=== PATIENT | female | born 1970 | race Hispanic/Latino ===

== ENCOUNTER 2023-09-14 02:27 | Emergency (ER) | payer SELFPAY ==
[2023-09-14 03:21] LABS: Bacteria/HPF None Seen HPF (None Seen); Bilirubin Negative (Negative); Blood, Urine 2+ (Negative); CAUTI Indications for Culture Pelvic or flank pain; Clarity Clear (Clear); Glucose, Urine (Dipstick) Normal (Negative); Ketone, Urine Negative (Negative); Leukocyte Negative Leu/uL (Negative); Nitrite Negative (Negative); Protein, Urine (Dipstick) Negative (Neg-Trace); RBC/HPF None Seen HPF (0-3); Specific Gravity, Urine 1.017 (1.002-1.036); Squamous Epithelial 0-3 HPF (0-3); Urobilinogen Normal mg/dL (Less than 2); WBC/HPF 0-3 HPF (0-3)
[2023-09-14 03:27] LABS: Urine Culture Reflex No No
[2023-09-14 03:38] LABS: #Basophils 0.1 thou/uL (0.0-0.2); #Eosinphils 0.2 thou/uL (0.0-0.7); #Monocytes 0.6 thou/uL (0.11-0.59); #Neutrophils 4.6 thou/uL (1.40-6.50); %Basophils 0.7 % (0.0-1.0); %Eosinophils 2.7 % (0.0-10.0); %Monocytes 8.7 % (0.0-10.0); %Neutrophils 64.6 % (42.0-75.0); Mean Corpuscular HGB CONC 30.3 g/dL (32.0-36.0); Mean Corpuscular Hemoglobin 23.5 pg (27.0-31.0); Mean Corpuscular Volume 77.6 fl (78.0-98.0); Mean Platelet Volume 9.7 fL (7.4-10.4); Platelet Count 304 10x3/uL (130-400); RBC Distribution Width 14.8 % (11.5-14.5); Red Blood Cell (RBC) Count 4.25 mill/uL (4.20-5.40)
[2023-09-14 03:56] LABS: ALT (SGPT) 13 U/L (8-55); AST (SGOT) 21 U/L (5-34); Albumin 4.3 g/dL (3.5-5.0); Alkaline Phosphatase 108 U/L (40-110); Anion Gap 11 mmol/L (10-20); BUN (Urea Nitrogen) 16 mg/dL (9.8-20.1); Bilirubin, Total 0.3 mg/dL (0.2-1.2); Calc. Creatinine Clearance 0 mL/min (70-130); Calcium 8.8 mg/dL (7.8-10.44); Carbon Dioxide 22 mmol/L (22-29); Chloride 109 mmol/L (98-107); Estimated GFR 81; Glucose 109 mg/dL (70-105); Lipase 51 U/L (8-78); Potassium 4.1 mmol/L (3.5-5.1); Protein, Total 7.3 g/dL (6.0-8.3); Sodium 138 mmol/L (136-145)
[2023-09-14] MEDS ORDERED: Ondansetron PF 4 MG/2 ML Vial ONE (06:58)
[2023-09-14] MEDS ORDERED: Morphine 4 MG/ML VIAL ONE (06:58)
[2023-09-14] MEDS ORDERED: Ketorolac Tromethamine 30 MG (1 mL) VIAL ONE (06:58)
== END 2023-09-14 08:35 | disposition home or self-care (01) ==
LOC: ERS 02:27 → EDBD 02:27 → ERS 08:35
DX: K80.20 Calculus of gallbladder without cholecystitis without obstruction (principal)
CPT/HCPCS: 36415; 74176; 76705; 80053; 81001; 83690; 85025; 96374; 96375; J1885; J2270; J2405

== ENCOUNTER 2023-09-15 14:28 | Inpatient (IN) | payer SELFPAY ==
[2023-09-15 14:51] LABS: #Basophils 0.1 thou/uL (0.0-0.2); #Eosinphils 0.2 thou/uL (0.0-0.7); #Monocytes 0.7 thou/uL (0.11-0.59); #Neutrophils 4.2 thou/uL (1.40-6.50); %Basophils 0.8 % (0.0-1.0); %Eosinophils 3.1 % (0.0-10.0); %Monocytes 9.3 % (0.0-10.0); %Neutrophils 59.4 % (42.0-75.0); Hematocrit 31.7 % (36.0-47.0); Hemoglobin 9.9 g/dL (12.0-16.0); Mean Corpuscular HGB CONC 31.2 g/dL (32.0-36.0); Mean Corpuscular Hemoglobin 24.3 pg (27.0-31.0); Mean Corpuscular Volume 77.7 fl (78.0-98.0); Mean Platelet Volume 9.3 fL (7.4-10.4); Platelet Count 292 10x3/uL (130-400); RBC Distribution Width 14.7 % (11.5-14.5); Red Blood Cell (RBC) Count 4.08 mill/uL (4.20-5.40); White Blood Cell (WBC) Count 7.1 10x3/uL (4.8-10.8)
[2023-09-15 15:00] LABS: BHCG - Serum Negative (NEGATIVE); Pregs Control Background? CLEAR/WHITE (CLR/WHITE); Pregs Control Bar Appear? YES (CONTROL BAR)
[2023-09-15 15:16] LABS: ALT (SGPT) 14 U/L (8-55); AST (SGOT) 20 U/L (5-34); Albumin 3.9 g/dL (3.5-5.0); Alkaline Phosphatase 105 U/L (40-110); Anion Gap 10 mmol/L (10-20); BUN (Urea Nitrogen) 14 mg/dL (9.8-20.1); Bilirubin, Total 0.3 mg/dL (0.2-1.2); Calc. Creatinine Clearance 0 mL/min (70-130); Calcium 8.5 mg/dL (7.8-10.44); Carbon Dioxide 23 mmol/L (22-29); Chloride 107 mmol/L (98-107); Estimated GFR 65; Globulin 3.2 g/dL (2.4-3.5); Glucose 113 mg/dL (70-105); Lipase 54 U/L (8-78); Potassium 3.5 mmol/L (3.5-5.1); Protein, Total 7.1 g/dL (6.0-8.3); Sodium 136 mmol/L (136-145)
[2023-09-15] MEDS ORDERED: Morphine 4 MG/ML VIAL ONE (15:46)
[2023-09-15] MEDS ORDERED: Ketorolac Tromethamine 30 MG (1 mL) VIAL ONE (15:47)
[2023-09-15] MEDS ORDERED: Ondansetron PF 4 MG/2 ML Vial ONE (15:47)
[2023-09-15 16:23] LABS: Troponin I Less than 0.010 ng/mL (< 0.028)
[2023-09-15] MEDS ORDERED: Morphine 4 MG/ML VIAL SLOW IVP PRN (17:56)
[2023-09-15] MEDS ORDERED: hydrALAZINE 20 MG/ML VIAL SLOW IVP PRN (17:56)
[2023-09-15] MEDS ORDERED: Ondansetron ODT 4 MG TAB PO PRN (17:56)
[2023-09-15] MEDS ORDERED: Morphine 2 MG/ML VIAL SLOW IVP PRN (17:56)
[2023-09-15] MEDS ORDERED: traMADol HCl 50 MG TAB PO PRN (17:56)
[2023-09-15] MEDS ORDERED: Ondansetron PF 4 MG/2 ML Vial IVP PRN (17:56)
[2023-09-15] MEDS ORDERED: Ketorolac Tromethamine 30 MG (1 mL) VIAL IVP SCH (18:45)
[2023-09-15] MEDS ORDERED: LevoFLOXacin D5W 500 mg (100 mL) BAG ONE (18:54)
[2023-09-15] MEDS ORDERED: LevoFLOXacin 500 mg/D5W 500 MG in Premix 1 BAG IVPB SCH (20:00)
[2023-09-15] MEDS ORDERED: Scopolamine 1 mg/72 hour Patch TD SCH (20:00)
[2023-09-15] MEDS: Acetaminophen 500 MG TAB PO SCH (20:43)
[2023-09-15] MEDS: Sodium Chloride 0.9% 1,000 ML IV SCH (20:48)
[2023-09-15] MEDS ORDERED: Enoxaparin 40 MG (0.4 mL) SYRINGE SC SCH (21:00)
[2023-09-16 02:03] VITALS: BMI 27.2
[2023-09-16] MEDS: Ketorolac Tromethamine 30 MG (1 mL) VIAL IVP SCH ×2 (03:17→10:01)
[2023-09-16] MEDS: Sodium Chloride 0.9% 1,000 ML IV SCH ×2 (08:36→10:01)
[2023-09-16] MEDS ORDERED: Pantoprazole 40 MG VIAL IVP SCH (09:00)
[2023-09-16] MEDS ORDERED: Ketorolac Tromethamine 30 MG (1 mL) VIAL ONE (09:39)
[2023-09-16] MEDS: Acetaminophen 500 MG TAB PO SCH ×3 (10:01→16:09)
[2023-09-16] MEDS ORDERED: Ibuprofen 600 MG TAB PO PRN (10:23)
[2023-09-16] MEDS ORDERED: traMADol HCl 50 MG TAB PO PRN (10:30)
[2023-09-16] MEDS ORDERED: Midazolam HCl 2 mg/2 ml Vial ONE (10:50)
[2023-09-16] MEDS ORDERED: fentaNYL 50 mcg/mL 1 mL Vial ONE ×4 (10:50→13:08)
[2023-09-16] MEDS ORDERED: EPINEPHrine 1 MG/ML VIAL ONE (10:50)
[2023-09-16] MEDS ORDERED: Bupivacaine PF 0.5% 30 ML VIAL ONE (10:50)
[2023-09-16] MEDS ORDERED: fentaNYL PF 100 MCG/2 ML SYRINGE ONE (10:50)
[2023-09-16] MEDS ORDERED: PROPOFOL 20 ML ONE (10:50)
[2023-09-16] MEDS ORDERED: SUGAMMADEX SODIUM 200 MG/2 ML VIAL ONE (10:51)
[2023-09-16] MEDS ORDERED: Dexamethasone 4 mg/ml Vial ONE (10:51)
[2023-09-16] MEDS ORDERED: Rocuronium Bromide 10 MG/ML (10ML VIAL) ONE (10:51)
[2023-09-16] MEDS ORDERED: Ondansetron PF 4 MG/2 ML Vial ONE (10:51)
[2023-09-16] MEDS ORDERED: Lidocaine 1% PF 5 ML VIAL ONE (10:51)
[2023-09-16] MEDS ORDERED: Promethazine HCl 25 MG/ML VIAL IM PRN (12:08)
[2023-09-16] MEDS ORDERED: Ondansetron HCl/PF 4 MG/2 ML Vial IVP PRN (12:08)
[2023-09-16] MEDS ORDERED: Succinylcholine 200 MG/10 ml SYRINGE FS ONE (13:00)
[2023-09-16] MEDS ORDERED: HYDROmorphone 0.5 MG/0.5 ML SYRINGE ONE (13:30)
[2023-09-16 16:30] VITALS: TEMP 97.9
[2023-09-16 16:38] VITALS: BP 125/69
== END 2023-09-16 18:05 | disposition home or self-care (01) | DRG 419 ==
LOC: ERS 14:28 → SURG B 17:56
PROVIDERS: ADMIT Specialist; ATTEND Specialist
PROC: 0FT44ZZ Resection of Gallbladder, Percutaneous Endoscopic Approach (ICD-10-PCS; principal; 2023-09-16)
PROC: 3E033XZ Introduction of Vasopressor into Peripheral Vein, Percutaneous Approach (ICD-10-PCS; 2023-09-16)
DX: K80.12 Calculus of gallbladder with acute and chronic cholecystitis without obstruction (principal); K76.0 Fatty (change of) liver, not elsewhere classified; Z98.890 Other specified postprocedural states; Z98.51 Tubal ligation status; Z87.891 Personal history of nicotine dependence; K42.9 Umbilical hernia without obstruction or gangrene
CPT/HCPCS: 36415; 36416; 76705; 80053; 83690; 84484; 84703; 85025; 88304; 93005; C1889; J0171; J1100; J1170; J1650; J1885; J1956; J2250; J2270; J2405; J2704; J3010; J7050; Q0162; S0020